=== PATIENT | male | born 1975 | race Caucasian/White ===

== ENCOUNTER 2021-11-30 09:00 | Outpatient (RCR) | payer BC, SELFPAY ==
--- NOTE | 2021-11-10 09:33 | HMH.PTOPEV ---
PT Outpatient Evaluation Rehab PT Outpatient Evaluation Start: 11/10/21 08:56 Freq: Status: Active Protocol: Document 11/10/21 08:56 ANUSHA (Rec: 11/10/21 09:33 ANUSHA [id number]) Electronically Signed By Jonah Caraballo, PT 11/10/21 08:56 Outpatient Therapy Subjective History Subjective History Pt reports h/o chronic bilateral hip pain for ~18 months. Pt reports overtraining for hiking trip(s ) lead to right hip pain then left hip pain. Pt reports extensive skilled P.T., chiropractic treatment, and 2 injections in right hip w/ limited improvements. Pt reports R>L sided hip pain, localized to grt. tro. area(s) , reports mm tightness in bilateral hips. Chief Complaint Pain,Stiff,Weakness Symptom Type Ache,Sharp,Dull Symptoms Relieved By Nothing Symptoms Aggravated By Standing,Physical Activity, Walking Prior Functional Limitations Driving,Standing,Walking, Stairs Current Functional Limitations Driving,Standing,Walking, Stairs Symptom Description Constant but Variable Level of pain today (0-10) 6 Pain scale - at its best (0-10) 6 Pain scale - at its worst (0-10) 9 Lumbopelvic Eval Posture Thoracic Spine Posture Standing Position Neutral Lumbar Spine Posture Standing Position Neutral Assistive device Assistive Devices None / NA Gait Observation General Gait Pattern Observation Antalgic Gait Palapation tenderness bilateral thoracic spinal tenderness No lumbar spinal tenderness No paraspinal tenderness No buttock tenderness Yes: 3/4 glut med Hip/Knee Eval Palpation Tenderness left Knee Palpation Overall Comment 3/4 GLUT MED, 2/4 TFL Hip Palpation Findings Tenderness,Trigger Point right Knee Palpation Overall Comment 3/4 TFL, GLUT MED Hip Palpation Findings Tenderness,Trigger Point MMT bilateral Hip Flexion Strength Grade 5 Normal Hip Abduction Strength Grade 4- Good- Hip Adduction Strength Grade 5 Normal Hip Extension Strength Grade 5 Normal Gluteus Ag Strength Grade 5 Normal Hip External Rotation Strength Grade 4 Good Hip Internal Rotation Strength Grade 4 Good Knee Extension Strength Grade 5 Normal Knee Flexion Strength Grade 5 Normal ROM Hip Flexion w/Knee Flexed Passive Range 0-100 of Motion (degrees
== END 2021-11-30 09:05 | disposition home or self-care (01) ==
LOC: PT 09:00
PROVIDERS: PCP Family Medicine; Visit Provider Family Medicine
DX: M70.61 Trochanteric bursitis, right hip (principal); M70.62 Trochanteric bursitis, left hip
CPT/HCPCS: 20561; 97110; 97163

== ENCOUNTER → 2021-12-01 08:44 | Outpatient (CLI) | payer BC, SELFPAY ==
--- NOTE | 2021-12-01 08:48 | XR_ITS ---
FINAL REPORT CLINICAL HISTORY: hari hip pain, bursitis FINDINGS: 2 views of the left hip were obtained. There is no acute fracture or dislocation. There are mild degenerative changes. There are no soft tissue abnormalities. IMPRESSION: Mild degenerative change. Reviewed, Interpreted and Dictated by Mohan Conner III, MD Transcribed by Kostas Cohn Authenticated and [facility]
--- NOTE | 2021-12-01 08:48 | XR_ITS ---
PROCEDURE INFORMATION: Exam: XR Right Hip Exam date and time: 12/01/2021 8:53 AM Age: 46 years old Clinical indication: Hip pain; Right hip TECHNIQUE: Imaging protocol: Radiologic exam of the Right hip. Views: 2 or 3 views hip with pelvis when performed. COMPARISON: No relevant prior studies available. FINDINGS: Bones/joints: Mild narrowing lateral margin right hip joint. Findings compatible with mild degenerative arthritic change. Soft tissues: Unremarkable. IMPRESSION: 1. No evidence of acute osseous injury. 2. Mild narrowing lateral margin right hip joint. Findings compatible with mild degenerative arthritic change.
== END ==
PROVIDERS: PCP Family Medicine; Visit Provider Orthopaedic Surgery
DX: M25.552 Pain in left hip (principal); M25.551 Pain in right hip
CPT/HCPCS: 73502

== ENCOUNTER → 2021-12-18 14:47 | Outpatient (CLI) | payer BC, SELFPAY ==
--- NOTE | 2021-12-18 14:47 | MR_ITS ---
FINAL REPORT CLINICAL HISTORY: hip pain. hip pain FOR 18 MONTHS. patient states bursitis in hips. right hip is worse. FINDINGS: Multiplanar MR imaging of the right hip was performed without contrast. There is moderate left hip joint space narrowing. There is no evidence of fracture or dislocation. There is no evidence of avascular necrosis. No bony mass is identified. No labral tear is identified. No significant joint effusion is seen. Inflammation is seen overlying the abductor tendons which may be related to mild tendinitis. There is minimal abnormal signal at the insertion of the gluteus minimus and medius tendons consistent with partial tears. The musculature is intact. No soft tissue mass or cyst is identified. IMPRESSION: Mild insertional tears of the gluteus medius and minimus tendons with mild tendinitis. Reviewed, Interpreted and Dictated by Bharat Walters MD Transcribed by Caterina Ellis Authenticated and [facility]
--- NOTE | 2021-12-18 14:47 | MR_ITS ---
FINAL REPORT CLINICAL HISTORY: hip pain FOR 18 MONTHS. patient states bursitis in hips. right hip is worse. FINDINGS: Multiplanar MR imaging of the left hip was performed without contrast. There is moderate left hip joint space narrowing. There is no evidence of fracture or dislocation. There is no evidence of avascular necrosis. No bony mass is identified. No labral tear is identified. No significant joint effusion is seen. Inflammation is seen overlying the abductor tendons which may be related to mild tendinitis. There is minimal abnormal signal at the insertion of the gluteus minimus and medius tendons consistent with partial tears. The musculature is intact. No soft tissue mass or cyst is identified. IMPRESSION: Mild insertional tears of the gluteus medius and minimus tendons with mild tendinitis. Reviewed, Interpreted and Dictated by Bharat Walters MD Transcribed by Caterina Ellis Authenticated and [facility]
--- NOTE | 2021-12-18 15:01 | XR_ITS ---
FINAL REPORT CLINICAL HISTORY: RULE OUT METAL FOREIGN BODY FOR MRI FINDINGS: ORBITS Look up and look down views were obtained. No fracture is identified. The sinuses are clear. No foreign body is identified. IMPRESSION: No acute process. Reviewed, Interpreted and Dictated by Bharat Walters MD Transcribed by Kostas Cohn Authenticated and [facility]
== END ==
PROVIDERS: PCP Family Medicine; Visit Provider Orthopaedic Surgery
DX: M70.61 Trochanteric bursitis, right hip (principal); M70.62 Trochanteric bursitis, left hip; H05.53 Retained (old) foreign body following penetrating wound of bilateral orbits
CPT/HCPCS: 70200; 73721

== ENCOUNTER → 2022-01-04 15:50 | Outpatient (CLI) | payer BC, SELFPAY ==
[2022-01-04 16:16] LABS: Basophils # 0.2 K/mm3 (0-0.2); Basophils % 2.3 % (0.1-2.0); Eosinophils # 0.3 K/mm3 (0.0-0.4); Eosinophils % 3.7 % (0.1-12.0); Hematocrit 45.8 % (42.0-52.0); Lymphocytes # 2.4 K/mm3 (0.7-4.5); Mean Corpuscular HGB Conc 32.7 g/dL (31.8-35.4); Mean Corpuscular Hemoglobin 34.5 pg (27.0-31.2); Mean Corpuscular Volume 105.4 fl (80-94); Mean Platelet Volume 9.5 fl (7.4-10.4); Monocytes # 0.9 K/mm3 (0.1-1.0); Monocytes % 11.8 % (1.7-9.3); Neutrophils # 3.6 K/mm3 (1.8-7.8); Neutrophils % 49.2 % (37.0-80.0); Platelet Count 258 K/mm3 (142-424); Red Blood Count 4.34 M/mm3 (4.60-6.20); Red Cell Distribution Width 12.7 % (11.5-17.5); White Blood Count 7.2 K/mm3 (4.8-10.8)
== END ==
PROVIDERS: PCP Family Medicine; Visit Provider Family Medicine
DX: Z20.822 Contact with and (suspected) exposure to COVID-19 (principal)
CPT/HCPCS: 36415; 85025; C9803; U0003; U0005

== ENCOUNTER 2022-05-25 15:00 | Outpatient (RCR) | payer BC, SELFPAY | END 2022-05-25 15:05 | disposition home or self-care (01) | LOC: PT 15:00 | PROVIDERS: PCP Family Medicine; Visit Provider Family Medicine | DX: M67.952 Unspecified disorder of synovium and tendon, left thigh (principal); M76.02 Gluteal tendinitis, left hip | CPT/HCPCS: 97110; 97112; 97163; 97530 ==

== ENCOUNTER → 2022-12-24 12:16 | Outpatient (CLI) | payer BC, SELFPAY ==
--- NOTE | 2022-12-24 12:21 | XR_ITS ---
FINAL REPORT CLINICAL HISTORY: LBP WITH JUNITO SCIATICA COMPARISON: None FINDINGS: AP, lateral, and oblique views of the lumbar spine were obtained. There is no acute fracture or acute malalignment. Vertebral body height is preserved. . No acute paraspinal abnormality is identified. IMPRESSION: No acute osseous abnormalities lumbar spine. Reviewed, Interpreted and Dictated by Berta Rivas MD Transcribed by Sidra Reardon Authenticated and [facility]
== END ==
PROVIDERS: PCP Family Medicine; Visit Provider Family Medicine
DX: M54.41 Lumbago with sciatica, right side (principal); M54.42 Lumbago with sciatica, left side; G89.29 Other chronic pain
CPT/HCPCS: 72110

== ENCOUNTER 2023-06-07 08:45 | Outpatient (CLI) | payer BC, SELFPAY ==
--- NOTE | 2023-06-07 08:52 | US_ITS ---
FINAL REPORT CLINICAL HISTORY: FATTY LIVER COMPARISON: None FINDINGS: Sonographic images of the right upper quadrant were obtained. The pancreas is partially obscured. There is fatty infiltration of the liver present. The gallbladder appears normal without evidence of gallstones.There is no evidence of biliary ductal dilatation.The common duct measures 3 mm. Limited images of the right kidney are unremarkable. The portal vein is borderline enlarged. IMPRESSION: Fatty infiltration of the liver without biliary ductal dilatation. Portal vein borderline enlarged. Reviewed, Interpreted and Dictated by Mohan Conner III, MD Transcribed by Sidra Reardon Authenticated and [facility]
== END 2023-06-07 23:59 ==
LOC: RAD 08:47
PROVIDERS: PCP Nurse Practitioner; Visit Provider Nurse Practitioner
DX: K76.0 Fatty (change of) liver, not elsewhere classified (principal)
CPT/HCPCS: 76705